=== PATIENT | male | born 1965 | race Caucasian/White ===

== ENCOUNTER 2022-07-24 13:02 | Outpatient (CLI) | payer BC, SELFPAY ==
[2022-07-24 13:53] LABS: INR 1.1
== END 2022-07-24 13:03 | disposition home or self-care (01) ==
PROVIDERS: Visit Provider Urology
DX: Z01.812 Encounter for preprocedural laboratory examination (principal); N20.0 Calculus of kidney
CPT/HCPCS: 36415; 85610; 85730; 87086

== ENCOUNTER 2022-08-01 02:14 | Day surgery (SDC) | payer BC, SELFPAY ==
[2022-07-21 10:57] VITALS: BMI 28.5
--- NOTE | 2022-07-21 11:01 | PC.NURSE ---
Report to the Outpatient Waiting Room, entrance under the green pavilion located off [facility], at time 6:00 on date 08/01/22. Planned Procedure Time: 7:30. Time changes happen often and if your time is changed the preop area will call you the afternoon before. - You and your visitor will be asked to self-screen and do not enter if you have any COVID symptoms. - Only one visitor is requested with a max of two and NO children visitors are allowed at this time. - The patient visitor may be requested to leave or wait in car when not with patient due to distancing restrictions. - A mask is REQUIRED within the hospital. Patients may have clear liquids (water, carbonated beverages, clear teas, apple juice) until 3 hours prior to surgery (4:30) with a maximum of 20 ounces. - No food from midnight until time of surgery Take the following medications with a SIP of water the morning of surgery: TRAMADOL, OXYCODONE IF NEEDED Medications to discontinue per physician: N/A Date to take last dose: N/A Please no make-up, nail thai, hairspray, perfume, deodorant, or body powder the day of surgery. No jewelry (including any body piercings) or valuables the day of surgery, leave them at home. Please take a shower or bath the night before, or the morning of, surgery with an antibacterial soap. Wear comfortable, loose fitting clothing. - Jewelry must be removed prior to entering the operating room. Rings and piercings that are not removed may be cut off. - The hospital will not accept responsibility for valuables. - Please leave all valuables, including medications, at home the day of surgery. If you are going home after surgery, a licensed driver license reviewing officer must drive you home. - NO public transportation without another adult if you receive anesthesia. - We recommend that an adult stay with you for 24 hours following discharge. - We also recommend that you do not drive, make important decision, drink alcoholic beverages, or take any drugs that were not prescribed by your health care provider for at least 24 hours after your discharge time. Follow any additional instructions given to you from your surgeon. If you or anyone in your household have experienced Covid symptoms in the past week, please notify your surgeon or the nurse liaison at the phone number below for possible testing. Telephone instructions given to ANDREA CARRILLO and asked if any additional questions and then verbalized understanding. Patient advised to call surgeon office or pre surgery nurse liaison [phone] if any additional questions.
--- NOTE | 2022-07-24 12:39 | P.HP_ITS ---
History of Present Illness History of Present Illness Consent: Risks, benefits, and alternatives have been discussed and questions answered. Patient agrees to proceed with procedure. Chief complaint: left renal stone Narrative: Hammad Ag is a 56 year old male recently seen by my partner Dr. Albert Brody with a painful, obstructing 11 mm left renal pelvic stone. At [facility] he underwent cystoscopy with ureteral stent placement and now presents for definitive left ESWL. He is aware the risk including, but not limited to, adverse cardiopulmonary events, need for additional procedures, hematuria and perinephric hematoma. Review of Systems Cardiovascular: Cardiovascular: Denies chest pain, Denies lightheadedness, Denies palpitations and Denies dyspnea Respiratory: Respiratory: Denies dyspnea Gastrointestinal: Gastrointestinal: Denies diarrhea, Denies nausea and Denies vomiting Genitourinary: Genitourinary: Denies hematuria and Denies dysuria Endocrine: Endocrine: Denies palpitations PMF Social History Social History Smoking status: Never smoker Alcohol intake: never Substance use: never Substance use type: does not use Spiritual care concerns: No Meds Home Medications and Allergies Home Medications Medication Instructions Recorded Confirmed Type oxycodone 5 mg tablet 5 mg PO Q6H PRN Pain 07/21/22 07/21/22 History tramadol 50 mg tablet 50 mg PO TID 07/21/22 07/21/22 History Allergies Allergy/AdvReac Type Severity Reaction Status Date / Time No Known Allergies Allergy Unverified 07/21/22 10:55 Exam Const: General: no acute distress Resp: Effort & Inspection: normal respiratory effort GI: Inspection: non-distended GI Palp: No abdominal tenderness and No Guarding due to palpation present (GI) Auscultation: normal bowel sounds Assessment and Plan Assessment and plan (1) Left renal stone: Code(s): N20.0 - Calculus of kidney Status: Acute Assessment and Plan: * Left ESWL
[2022-08-01] VITALS (8 sets, daily range): BP systolic 103–160; BP diastolic 71–103; PULSE 44–75; RESP 12–18; TEMP 36.2–36.8; O2SAT 100
--- NOTE | ~2022-08-01 | XR_ITS ---
Supine and upright views of the abdomen Clinical history: Lithotripsy COMPARISON: 05/21/2018 Findings: Bowel gas pattern is nonspecific. No evidence for obstruction or free air. Left ureteral st ent in place. There is a 1.1 cm left lower pole renal stone. Multiple additional tiny bilateral renal stones are present. No definite stone along the course of the ureteral stent. Questionable calcifica tion along the region of the mid right ureter. Osseous structures are intact. Impression: 1.1 cm left lower pole renal stone. Additional tiny bilateral renal stones. Left ureteral stent, with no stone along the course of the stent. Probable small calcification which could be in the region of the mid right ureter. Correlate with pat ient's symptomatology. Reviewed, dictated and finalized at [facility]. N [employer] Impression: 1.1 cm left lower pole renal stone. Additional tiny bilateral renal stones. Left ureteral stent, with no stone along the course of the stent. Probable small calcification which could be in the region of the mid right uret er. Correlate with patient's symptomatology.
--- NOTE | 2022-08-01 06:42 | WPDHPUPDATE1 ---
History and Physical Update Update Date/Time: 08/01/22 06:42 History and Physical has been reviewed, including an updated exam of the patient. There are NO changes in the patient's condition. Risks, benefits, and alternatives have been discussed and questions answered. Patient agrees to proceed with procedure.
[2022-08-01] MEDS: LACTATED RINGERS 1,000 ML 30 ML IV CONT (07:00)
--- NOTE | 2022-08-01 07:15 | WPDANESEPPF ---
Anes - Initial Pre Proc Eval Procedure: Operation Date: 08/01/22 07:30 Proposed Procedures p Left Extracorporeal Shock Wave Lithotripsy, - Carl Martinez MD s Cystoscopy, Left Stent Removal or Replacement - Carl Martinez MD Date/Time: 08/01/22 07:15 Surgeon: Carl Martinez MD Pre Op Diagnosis: left renal stone Patient Data Age: 56 Gender: M Height: 1.83 m Weight: 93.5 kg Last Vital Signs Temp 36.8 C 08/01/22 06:59 Pulse 75 08/01/22 06:59 Resp 18 08/01/22 06:59 BP 148/103 H 08/01/22 06:59 Pulse Ox 100 08/01/22 06:59 O2 Del Method Room Air 08/01/22 06:59 Allergies Allergy/AdvReac Type Severity Reaction Status Date / Time No Known Allergies Allergy Verified 08/01/22 06:39 Home Medications Medication Instructions Recorded Confirmed Type oxycodone 5 mg tablet 5 mg PO Q6H PRN Pain 07/21/22 07/21/22 History tramadol 50 mg tablet 50 mg PO TID 07/21/22 08/01/22 History Patient hx anesthesia problems: none Family hx anesthesia problems: none Results Review: All pre-operative results and documents have been reviewed as part of the pre-operative evaluation. [facility] Social History Social History Smoking status: Never smoker Alcohol intake: never Substance use: never Substance use type: does not use Living arrangements: with family Spiritual care concerns: No Anes - Eval Final PreProcedure Day of Procedure 08/01/22 07:15 Patient weight: overweight Heart: regular rate and rhythm Lungs: clear to auscultation Airway: Mallampati scale class II Neurological: alert and oriented Last oral intake: >/= 8 hours ASA classification: II Emergent: no Anesthetic plan: proceed Anesthesia type and monitoring: general LMA and standard monitoring Results Review: All pre-operative results and documents have been reviewed as part of the pre-operative evaluation. Informed Consent: The patient's anesthetic plan and its attendant risks and benefits were discussed with the patient/family/POA. Questions were solicited and answers provided to the satisfaction of the patient/family/POA.
[2022-08-01] MEDS: ceFAZolin 2 GM/D5W 50 ML 2 GM/50 ML BAG IVPB (07:22)
--- NOTE | 2022-08-01 07:48 | W.PM.PROC2 ---
Procedure Note - Detailed Date of Procedure 08/01/22 Pre-op Diagnosis Left renal stone Post-op Diagnosis Same Procedure Performed Cystoscopy, left stent removal, left ESWL Surgeon Carl Martinez MD Anesthesia General Description of Procedure The patient was brought to the operative suite where he was placed in the supine position on the Dornier lithotripter table. Flexible cystoscopy was undertaken with a 16F flexible cystoscopy. There were no urethral strictures. The prostatic urethra estimated length was 1.5cm. There was no significant obstruction of the prostatic urethra with no median lobe enlargement. The bladder mucosa was normal and there was a single, orthotopic ureteral orifice bilaterally. tip of the indwelling stent is grasped and it is removed with ease. The patient was then repositioned in the supine position with the focal point of the lithotriptor on a 11mm left lower calyceal calculus. A total of 2500 shocks were delivered at a power setting of 4. There appeared to be good fragmentation of the stone. The patient tolerated the procedure well and was taken to the recovery room in good condition. Estimated Blood Loss 0 Drains No Packing No Pathology None sent Complications No immediate complications
[2022-08-01] MEDS: fentaNYL CITRATE INJ (*CRX) 100 MCG/2 ML VIAL 25 MCG IV PUSH ×3 (08:52→08:58)
[2022-08-01] MEDS: oxyCODONE HCL (*CRX) 5 MG TAB IR PO (09:17)
[2022-08-01] MEDS: KETOROLAC 30 MG/ML VIAL (*BKC) IV PUSH (09:36)
[2022-08-01] MEDS: KETOROLAC 30 MG/ML VIAL (*BKC) IM (09:36)
== END 2022-08-01 10:07 | disposition home or self-care (01) ==
PROVIDERS: Visit Provider Urology
PROC: (CPT 50590; principal; 2022-08-01 07:30)
PROC: (CPT 52352; 2022-08-01 07:30)
DX: N20.0 Calculus of kidney (principal)
CPT/HCPCS: 50590; 52310; 36415; 74018; 85610; 85730; 87086; A9270; J0690; J1100; J1885; J2250; J2405; J2704; J3010; J7030; J7120

== ENCOUNTER 2022-08-15 13:46 | Outpatient (CLI) | payer BC, SELFPAY ==
--- NOTE | ~2022-08-15 | XR_ITS ---
EXAMINATION: XR abdomen/kub 1V INDICATION: Left ureteral and kidney stones TECHNIQUE: Supine views of the abdomen were obtained on 2 radiographs. COMPARISON: 08/01/2022 FINDINGS: The left internal ureteral stent has been removed. A previously identified 11 mm stone of t he left kidney lower pole that measures 6 mm. There are punctate stones of the right kidney. No defin ite stones are identified along the expected courses of the ureters or within the urinary bladder. Th ere is a phlebolith of the right pelvis. Moderate lumbar spondylosis is noted. The visualized lung ba ses are clear. There is mild osteoarthritis of hips. IMPRESSION: 1. Interval removal of a left internal ureteral stent with decrease in size of the left kidney lower pole stone, likely due to lithotripsy. 2. Punctate right nephrolithiasis. Reviewed, dictated and finalized at location B. [employer]
== END 2022-08-15 13:47 | disposition home or self-care (01) ==
LOC: ANHIMG 13:50
PROVIDERS: Visit Provider Urology
DX: N20.2 Calculus of kidney with calculus of ureter (principal)
CPT/HCPCS: 74018

== ENCOUNTER 2022-10-23 02:12 | Emergency (ER) | payer OTHER, BC, SELFPAY ==
--- NOTE | ~2022-10-23 | CT_ITS ---
Noncontrast CT scan of the right knee CLINICAL HISTORY: Pain TECHNIQUE: Axial noncontrast imaging of the right knee was performed. Sagittal and coronal reformatte d images were constructed. Dose reduction technique was used on this scan by utilizing automated expo sure control and iterative reconstruction technique. The dose-length product (DLP) was 388.35 mGy-cm. Findings: No fracture or dislocation seen. Joint spaces are preserved. No significant degenerative sp urring identified. No significant joint effusion or Emmanuel's cyst. There is mild prepatellar subcutaneous soft tissue joseph ma present, nonspecific. No other soft tissue mass or fluid collection evident. No gross intra-articu lar abnormality seen on noncontrast imaging, though this exam is insensitive to evaluate intra-articu lar structures. IMPRESSION: No fracture or dislocation. No significant degenerative change. Mild prepatellar subcutaneous soft tissue edema. Noncontrast CT cannot adequately evaluate intra-articular structures such as ligaments and menisci. M R would be required to best evaluate such soft tissue structures. Reviewed, dictated and finalized at location M. IMPRESSION: No fracture or dislocation. No significant degenerative change. Mild prepatellar subcutaneous soft tissue edema. Noncontrast CT cannot adequately evaluate intra-articular structures such as li gaments and menisci. MR would be required to best evaluate such soft tissue str uctures.
--- NOTE | ~2022-10-23 | XR_ITS ---
Right Knee Technique: AP, lateral, and oblique views were obtained. Clinical History: Pain Findings: No fracture or dislocation is seen. Osseous alignment is anatomic. Joint spaces are preserv ed without degenerative or erosive change. Soft tissues are unremarkable. No joint effusion is seen. Impression: Unremarkable right knee radiographs. Reviewed, dictated and finalized at location . Impression: Unremarkable right knee radiographs.
[2022-10-23 02:18] VITALS: BP 146/89; PULSE 64; RESP 18; TEMP 36.2; O2SAT 99
--- NOTE | 2022-10-23 02:56 | ED.LOWEXIN ---
HPI - Extremity Injury (Lower) General Chief Complaint: Extremity Injury, Lower Stated Complaint: twisted knee at work, [employer] Time Seen by Provider: 10/23/22 02:32 History of Present Illness HPI Narrative: This is a 57-year-old male, with past history of right hip arthritis, who presents to the emergency department complaining of right knee pain after falling. The patient states he was at work, when he tripped on wires on the ground, resulting in twisting of the right knee. He states with weightbearing he has 9/10 sharp, lateral right knee pain that improves to 6/10 with rest. He denies pain elsewhere, head injury or loss of consciousness Related Data Home Medications Medication Instructions Recorded Confirmed oxycodone 5 mg tablet 5 mg PO Q6H PRN Pain 07/21/22 07/21/22 tramadol 50 mg tablet 50 mg PO TID 07/21/22 08/01/22 Allergies Allergy/AdvReac Type Severity Reaction Status Date / Time No Known Allergies Allergy Verified 08/01/22 06:39 Review of Systems Review of Systems: CONSTITUTIONAL: Denies fever, chills, or sweats. ENT: Denies rhinorrhea, congestion, sore throat, or otalgia. CARDIOVASCULAR: Denies chest pain, palpitations, or edema. RESPIRATORY: Denies cough or dyspnea. GASTROINTESTINAL: Denies abdominal pain, nausea, vomiting, or diarrhea. GENITOURINARY: Denies dysuria or hematuria. SKIN: Denies rash or itching. MUSCULOSKELETAL: Right knee pain denies back pain, or myalgia. NEUROLOGIC: Denies headache, numbness, dizziness, or weakness. PSYCHIATRIC: Denies anxiety or depression. [facility] Past Medical History Medical History (Updated 10/23/22 @ 05:23 by Sean Rodriguez MD) Arthritis of right hip Left renal stone Surgical History Surgical History (Updated 10/23/22 @ 02:58 by Sean Rodriguez MD) H/O left knee surgery History of appendectomy Social History Social History Smoking status: Never smoker Alcohol intake: never Substance use: never Substance use type: does not use Living arrangements: with family Gender identity (if verbalized by the patient): Male Sexual Orientation (if Verbalized by the Patient): Straight or Heterosexual Spiritual care concerns: No Exam Narrative: GENERAL: Well-appearing, well-nourished, and in no acute distress. HEAD: Normocephalic, atraumatic. EYES: PERRLA and EOMI. CHEST: Clear to auscultation. No respiratory distress. No wheezes rales or rhonchi HEART: Regular rate and rhythm. No murmur heard. Normal peripheral pulses. ABDOMEN: Soft, nontender, nondistended, normal active bowel sounds. EXTREMITIES: No obvious deformity of the knees. Significant tenderness to palpation at the right lateral aspect of the proximal tibia. No noted laxity of the knees with anterior and posterior drawer signs negative. Kishore test negative. Range of motion of all extremities otherwise normal. No edema. SKIN: Warm, dry, no rash. NEURO: No focal deficits. Alert and oriented x3. PSYCH: Normal mood and affect. Course Course Emergency Course: 02:50 - The patient politely declined pain medications. 03:45 - X-ray of the right knee not concerning for fracture. Considering the patient's significant pain with weightbearing I obtained a CT of the right knee. On my review I do not appreciate fracture. Stat rad interpretation pending. The patient again politely declines pain medications. 05:13 - STAT Rad interpretation of the right knee demonstrates no acute fracture or grossly evident ligamentous abnormality. The extensor mechanism is intact. Tiny joint effusion. Subcutaneous soft tissue edema anteriorly. Discussed findings with the patient. Discussed pain management recommendations including RICE therapy and NSAIDs. I recommended follow-up with his primary care doctor in 1 to 2 weeks. Discussed return and emergent precautions including signs/symptoms of neurovascular compromise and septic arthritis. Th
== END 2022-10-23 05:33 | disposition home or self-care (01) ==
PROVIDERS: Emergency Provider Preventive Medicine Aerospace Medicine
DX: S86.311A Strain of muscle(s) and tendon(s) of peroneal muscle group at lower leg level, right leg, initial encounter (principal); W01.0XXA Fall on same level from slipping, tripping and stumbling without subsequent striking against object, initial encounter
CPT/HCPCS: 73562; 73700; 99284